=== PATIENT | female | born 2000 | race Two or more races ===

== ENCOUNTER 2024-06-09 09:21 | Emergency (ER) | payer SELFPAY ==
[2024-06-09 09:25] VITALS: BP 119/77; PULSE 86; RESP 18; TEMP 98.8; BMI 24.3
[2024-06-09] MEDS ORDERED: IBUPROFEN 600 MG TABLET (FP) PO ONE (09:50)
[2024-06-09] MEDS: IBUPROFEN 600 MG TABLET (FP) PO ONE (09:55)
[2024-06-09 10:13] LABS: HCG,QUALITATIVE URINE Negative
[2024-06-09 10:19] LABS: HEMOGLOBIN 13.4 G/dL (10.7-15.3); MCH 28.7 pg (25.7-33.7); MCHC 33.4 g/dl (32.0-36.0); MEAN PLT VOLUME 8.3 fl (7.5-11.1); PLATELET COUNT 197.4 10^3/uL (134-434); RBC 4.65 10^6/uL (3.60-5.2); RDW 14.5 % (11.6-15.6); WHITE BLOOD COUNT 5.3 10^3/uL (4.0-10.8)
[2024-06-09 10:23] LABS: ALBUMIN 4.8 g/dl (3.4-5.0); ALK PHOS 48 U/L (45-117); ANION GAP 6 mmol/L (4-13); BILIRUBIN,TOTAL 0.9 mg/dl (0.2-1); CALCIUM 9.7 mg/dl (8.5-10.1); CHLORIDE 101 mmol/L (98-107); CO2 28 mmol/L (21-32); GLUCOSE,RANDOM 84 mg/dl (74-106); PLATELET ESTIMATE ADEQUATE; POTASSIUM 3.8 mmol/L (3.5-5.1); SGOT/AST 16 U/L (15-37); SGPT/ALT 8 U/L (7-52); SODIUM 135 mmol/L (136-145); TOT PROT 7.3 g/dl (6.4-8.2)
== END 2024-06-09 11:05 | disposition home or self-care (01) ==
LOC: FER 09:21
DX: R07.89 Other chest pain (principal)
CPT/HCPCS: 36415; 71046-TC-FY; 80053; 81003; 81015; 84484; 84703; 85027; 85379; 93005; 99285-25